=== PATIENT | male | born 1955 | race Caucasian/White ===

== ENCOUNTER 2017-09-16 06:37 | Inpatient (IN) | payer MEDICARE ==
[~2017-09-16] VITALS: Ht 182.9 cm; Wt 95.5 kg
[2017-09-16] MEDS ORDERED: SODIUM CHLORIDE 0.9% 1,000 ML IV ONE (06:52)
[2017-09-16] MEDS ORDERED: SODIUM CHLORIDE FLUSH 10ML SYR IVF ONE (07:00)
[2017-09-16] MEDS ORDERED: SODIUM CHLORIDE 0.9% 1,000ML IVBOLUS ONE ×2 (07:00→08:30)
[2017-09-16 07:18] LABS: MEAN CORPUSCULAR HEMOGLOBIN 30.4 pg (27.5-34.5); MEAN CORPUSCULAR HGB CONC 33.4 g/dL (33.2-36.2); MEAN CORPUSCULAR VOLUME 91.2 fL (81-97); MEAN PLATELET VOLUME 10.6 fL (7.4-10.4); PLATELET COUNT 193 x10^3/uL (130-400); RED BLOOD COUNT 4.51 x10^6/uL (4.38-5.82); RED CELL DISTRIBUTION WIDTH 16.2 % (9.4-14.8)
[2017-09-16 07:27] LABS: INTERNATIONAL NORMALIZED RATIO 1.25 (0.93-1.1); PROTHROMBIN TIME 12.9 Seconds (9.6-11.5)
[2017-09-16 07:30] LABS: ALANINE AMINOTRANSFERASE 48 U/L (12-78); ALBUMIN 1.7 g/dL (3.4-5.0); ANION GAP 11 mmol/L (5-15); CALCIUM 8.6 mg/dL (8.5-10.1); CHLORIDE 90 mmol/L (98-107)
[2017-09-16 07:34] LABS: ALKALINE PHOSPHATASE 579 U/L (45-117); BILIRUBIN,TOTAL 1.6 mg/dL (0.2-1.0); CREATINE KINASE, TOTAL 14 U/L (39-308); TOTAL PROTEIN 8.2 g/dL (6.4-8.2); TROPONIN I < 0.015 ng/mL (0.000-0.045)
[2017-09-16] MEDS ORDERED: GLIM4TAB2 PO (07:44)
[2017-09-16] MEDS ORDERED: CARV25TA12 PO (07:44)
[2017-09-16] MEDS ORDERED: MULTIVITAMIN PO (07:44)
[2017-09-16] MEDS ORDERED: ALLO300T PO (07:44)
[2017-09-16] MEDS ORDERED: LACT10SO5 PO (07:44)
[2017-09-16] MEDS ORDERED: SPIR25TA3 PO (07:44)
[2017-09-16] MEDS ORDERED: FURO20TA3 PO (07:44)
[2017-09-16 07:57] LABS: BASOPHILS # (AUTO) 0.07 x10^3/uL (0-0.1); BASOPHILS % (AUTO) 1 % (0-1); EOSINOPHILS % (AUTO) 0 % (1-7); LYMPHOCYTES # (AUTO) 0.81 x10^3/uL (1-3.4); LYMPHOCYTES % (AUTO) 6 % (22-44); MD SCAN; MONOCYTES # (AUTO) 0.13 x10^3/uL (0.2-0.8); MONOCYTES % (AUTO) 1 % (2-9); NEUTROPHILS % (AUTO) 93 % (42-75)
[2017-09-16] MEDS ORDERED: PLEASE ENTER HEIGHT AND WEIGHT MC SCH (08:30)
[2017-09-16] MEDS ORDERED: OMNIPAQUE 350 MG/ML, 100ML BOTTLE ONE (08:34)
[2017-09-16] MEDS ORDERED: POLYETHYLENE GLYCOL 17 GM PACKET PO PRN (10:00)
[2017-09-16] MEDS ORDERED: ONDANSETRON 2MG/ML, 2ML IVPush PRN (10:00)
[2017-09-16] MEDS ORDERED: DOCUSATE 100 MG CAPSULE PO PRN (10:00)
[2017-09-16] MEDS ORDERED: ALBUMIN HUMAN 25% 100 ML IV ONE (10:00)
[2017-09-16] MEDS ORDERED: LIDOCAINE 2%, 10ML ONE ×2 (10:00→10:26)
[2017-09-16] MEDS ORDERED: ACETAMINOPHEN 325 MG TABLET PO PRN (10:00)
[2017-09-16] MEDS ORDERED: BISACODYL 10 MG SUPP PR PRN (10:00)
[2017-09-16] MEDS ORDERED: LACTATED RINGERS 1,000 ML IVBOLUS ONE (10:30)
[2017-09-16] MEDS: LACTATED RINGERS 1,000 ML IV SCH ×2 (10:42→12:58)
[2017-09-16] MEDS: NOREPINEPHRINE 4 MG in SODIUM CHLORIDE 0.9% 246 ML IV PRN ×3 (10:59→20:30)
[2017-09-16] MEDS ORDERED: NALOXONE 1 MG/ML, 2ML ONE (11:25)
[2017-09-16] MEDS ORDERED: MIDAZOLAM 1 MG/ML, 5ML ONE (11:25)
[2017-09-16] MEDS ORDERED: FLUMAZENIL 0.1 MG/1 ML, 5ML ONE (11:25)
[2017-09-16] MEDS ORDERED: FENTANYL PF 100 MCG/2ML ONE (11:25)
[2017-09-16] MEDS ORDERED: HEPARIN wt. based STROKE protocol MC PRN (13:00)
[2017-09-16] MEDS ORDERED: DAPTOMYCIN 500 MG in SODIUM CHLORIDE 0.9% 100 ML IVPB ONE (13:30)
[2017-09-16] MEDS: ERTAPENEM 1 GM in SODIUM CHLORIDE 0.9% 50 ML IV SCH (13:51)
[2017-09-16] MEDS ORDERED: ALBUTEROL SULFATE 2.5 MG/3 ML NPPB PRN (14:00)
[2017-09-16] MEDS ORDERED: VASOPRESSIN 100 UNIT in SODIUM CHLORIDE 0.9% 495 ML IV PRN (14:30)
[2017-09-16] MEDS ORDERED: PHENYLEPHRINE 20 MG in SODIUM CHLORIDE 0.9% 248 ML IV PRN (14:30)
[2017-09-16] MEDS: HEPARIN 25,000 UNITS/500ML PMX 500 ML IV PRN (14:30)
[2017-09-16] MEDS ORDERED: NOREPINEPHRINE 1 MG/ML, 4ML ONE (16:08)
[2017-09-16] MEDS: FAMOTIDINE 20 MG/2 ML IVPush SCH (21:11)
[2017-09-16] MEDS: OXYcodone/APAP 5/325MG TABLET PO PRN (22:01)
[2017-09-17] MEDS: LACTATED RINGERS 1,000 ML IV SCH ×3 (00:07→23:10)
[2017-09-17] MEDS: NOREPINEPHRINE 8 MG in SODIUM CHLORIDE 0.9% 242 ML IV PRN ×3 (00:25→18:14)
[2017-09-17 04:00] VITALS: BP 90/56
[2017-09-17 04:24] LABS: MEAN CORPUSCULAR HGB CONC 32.9 g/dL (33.2-36.2); MEAN CORPUSCULAR VOLUME 91.1 fL (81-97); MEAN PLATELET VOLUME 9.4 fL (7.4-10.4); PLATELET COUNT 254 x10^3/uL (130-400); RED BLOOD COUNT 3.68 x10^6/uL (4.38-5.82); RED CELL DISTRIBUTION WIDTH 15.9 % (9.4-14.8)
[2017-09-17 04:34] LABS: ALANINE AMINOTRANSFERASE 37 U/L (12-78); ALBUMIN 1.6 g/dL (3.4-5.0); ANION GAP 9 mmol/L (5-15); CALCIUM 7.8 mg/dL (8.5-10.1); CHLORIDE 100 mmol/L (98-107)
[2017-09-17 04:37] LABS: ALKALINE PHOSPHATASE 373 U/L (45-117); BILIRUBIN,TOTAL 1.2 mg/dL (0.2-1.0); CREATININE 0.44 mg/dL (0.7-1.3); TOTAL PROTEIN 6.2 g/dL (6.4-8.2)
[2017-09-17 04:38] LABS: MD YES
[2017-09-17 04:41] LABS: ANISOCYTOSIS 1+; BAND#(MANUAL) 0.35 x10^3/uL; BANDS%(MANUAL) 2 % (0-7); LYMPH#(MANUAL) 2.63 x10^3/uL (1-3.4); LYMPHS% (MANUAL) 15 % (22-44); MONOS#(MANUAL) 0.35 x10^3/uL (0.3-2.7); MONOS% (MANUAL) 2 % (2-9); SEG#(MANUAL) 14.18 x10^3/uL (1.8-6.8); SEGS% (MANUAL) 81 % (42-75)
[2017-09-17 04:42] LABS: <PLATELET ESTIMATE> ADEQUATE; LARGE PLATELETS 1+
[2017-09-17] MEDS ORDERED: ALBUMIN HUMAN 25% 100 ML IV ONE (08:30)
[2017-09-17] MEDS ORDERED: MAGNESIUM SULFATE PMX 4GM/100M 100 ML IV ONE (08:30)
[2017-09-17] MEDS: FAMOTIDINE 20 MG/2 ML IVPush SCH ×2 (08:35→20:51)
[2017-09-17] MEDS: ERTAPENEM 1 GM in SODIUM CHLORIDE 0.9% 50 ML IV SCH (13:17)
[2017-09-17] MEDS: HEPARIN 25,000 UNITS/500ML PMX 500 ML IV PRN (14:36)
[2017-09-17] MEDS: OXYcodone/APAP 5/325MG TABLET PO PRN (20:52)
[2017-09-17] MEDS ORDERED: [UNRECOGNIZED DRUG - REMARK] MC PRN (22:30)
[2017-09-18 03:39] LABS: ALANINE AMINOTRANSFERASE 30 U/L (12-78); ANION GAP 6 mmol/L (5-15); CALCIUM 7.9 mg/dL (8.5-10.1); CHLORIDE 98 mmol/L (98-107); CREATININE 0.36 mg/dL (0.7-1.3)
[2017-09-18 03:41] LABS: ALKALINE PHOSPHATASE 319 U/L (45-117); BILIRUBIN,TOTAL 0.8 mg/dL (0.2-1.0); TOTAL PROTEIN 6.2 g/dL (6.4-8.2)
[2017-09-18 03:43] LABS: BASOPHILS # (AUTO) 0.04 x10^3/uL (0-0.1); BASOPHILS % (AUTO) 0 % (0-1); EOSINOPHILS # (AUTO) 0.01 x10^3/uL (0-0.4); EOSINOPHILS % (AUTO) 0 % (1-7); LYMPHOCYTES # (AUTO) 2.04 x10^3/uL (1-3.4); LYMPHOCYTES % (AUTO) 21 % (22-44); MD NO; MEAN CORPUSCULAR HEMOGLOBIN 30.4 pg (27.5-34.5); MEAN CORPUSCULAR HGB CONC 33.1 g/dL (33.2-36.2); MEAN CORPUSCULAR VOLUME 92.1 fL (81-97); MEAN PLATELET VOLUME 9.1 fL (7.4-10.4); MONOCYTES # (AUTO) 0.83 x10^3/uL (0.2-0.8); MONOCYTES % (AUTO) 8 % (2-9); NEUTROPHILS # (AUTO) 7.05 x10^3/uL (1.8-6.8); NEUTROPHILS % (AUTO) 71 % (42-75); PLATELET COUNT 147 x10^3/uL (130-400); RED BLOOD COUNT 3.23 x10^6/uL (4.38-5.82); RED CELL DISTRIBUTION WIDTH 16.1 % (9.4-14.8)
[2017-09-18] MEDS: OXYcodone/APAP 5/325MG TABLET PO PRN (04:27)
[2017-09-18 04:32] VITALS: BP 113/68
[2017-09-18] MEDS ORDERED: POTASSIUM PHOSPHATE 44 MEQ in SODIUM CHLORIDE 0.9% 500 ML IV ONE (09:00)
[2017-09-18] MEDS: FAMOTIDINE 20 MG/2 ML IVPush SCH (09:02)
[2017-09-18] MEDS: LACTATED RINGERS 1,000 ML IV SCH (09:24)
[2017-09-18] MEDS: HEPARIN 25,000 UNITS/500ML PMX 500 ML IV PRN (09:43)
[2017-09-18] MEDS ORDERED: OMNIPAQUE 350 MG/ML, 100ML BOTTLE ONE (12:40)
[2017-09-18] MEDS: ERTAPENEM 1 GM in SODIUM CHLORIDE 0.9% 50 ML IV SCH (13:12)
[2017-09-18] MEDS: FAMOTIDINE 20 MG TABLET PO SCH (20:39)
[2017-09-18] MEDS ORDERED: LACTATED RINGERS 1,000 ML IV SCH (23:00)
[2017-09-19] MEDS: HEPARIN 25,000 UNITS/500ML PMX 500 ML IV PRN ×2 (01:18→19:53)
[2017-09-19 03:47] VITALS: BP 127/79
[2017-09-19 06:24] LABS: CHLORIDE 101 mmol/L (98-107)
[2017-09-19 06:30] LABS: BASOPHILS # (AUTO) 0.01 x10^3/uL (0-0.1); BASOPHILS % (AUTO) 0 % (0-1); EOSINOPHILS # (AUTO) 0.02 x10^3/uL (0-0.4); EOSINOPHILS % (AUTO) 0 % (1-7); LYMPHOCYTES # (AUTO) 1.69 x10^3/uL (1-3.4); LYMPHOCYTES % (AUTO) 23 % (22-44); MD NO; MEAN CORPUSCULAR HEMOGLOBIN 30.8 pg (27.5-34.5); MEAN CORPUSCULAR HGB CONC 33.5 g/dL (33.2-36.2); MEAN CORPUSCULAR VOLUME 91.9 fL (81-97); MEAN PLATELET VOLUME 9.1 fL (7.4-10.4); MONOCYTES # (AUTO) 0.63 x10^3/uL (0.2-0.8); MONOCYTES % (AUTO) 9 % (2-9); NEUTROPHILS # (AUTO) 5.14 x10^3/uL (1.8-6.8); NEUTROPHILS % (AUTO) 69 % (42-75); PLATELET COUNT 140 x10^3/uL (130-400); RED BLOOD COUNT 3.13 x10^6/uL (4.38-5.82); RED CELL DISTRIBUTION WIDTH 15.9 % (9.4-14.8)
[2017-09-19 06:38] LABS: ALANINE AMINOTRANSFERASE 28 U/L (12-78); ALBUMIN 1.7 g/dL (3.4-5.0); ALKALINE PHOSPHATASE 295 U/L (45-117); ANION GAP 7 mmol/L (5-15); BILIRUBIN,TOTAL 0.6 mg/dL (0.2-1.0); CREATININE 0.22 mg/dL (0.7-1.3)
[2017-09-19] MEDS ORDERED: ALBUTEROL SULFATE 2.5 MG/3 ML ONE (08:53)
[2017-09-19] MEDS ORDERED: POTASSIUM PHOSPHATE 44 MEQ in SODIUM CHLORIDE 0.9% 500 ML IV ONE (09:00)
[2017-09-19] MEDS: FAMOTIDINE 20 MG TABLET PO SCH ×2 (09:14→19:51)
[2017-09-19] MEDS: FUROSEMIDE 20 MG TABLET PO SCH (09:15)
[2017-09-19] MEDS: SPIRONOLACTONE 25 MG TABLET PO SCH (09:15)
[2017-09-19] MEDS: ALBUTEROL SULFATE 2.5 MG/3 ML NPPB SCH ×3 (11:30→20:00)
[2017-09-19] MEDS: LACTULOSE 20 GM/30 ML UDC PO SCH ×3 (12:05→19:59)
[2017-09-19] MEDS: ERTAPENEM 1 GM in SODIUM CHLORIDE 0.9% 50 ML IV SCH (13:01)
[2017-09-19 16:33] LABS: ANION GAP 6 mmol/L (5-15); CALCIUM 7.7 mg/dL (8.5-10.1); CHLORIDE 99 mmol/L (98-107); CREATININE 0.37 mg/dL (0.7-1.3)
[2017-09-20 05:05] VITALS: BP 101/65
[2017-09-20] MEDS: LACTULOSE 20 GM/30 ML UDC PO SCH ×4 (05:16→21:14)
[2017-09-20 06:19] LABS: BASOPHILS # (AUTO) 0.06 x10^3/uL (0-0.1); BASOPHILS % (AUTO) 1 % (0-1); EOSINOPHILS # (AUTO) 0.03 x10^3/uL (0-0.4); EOSINOPHILS % (AUTO) 1 % (1-7); LYMPHOCYTES # (AUTO) 1.55 x10^3/uL (1-3.4); LYMPHOCYTES % (AUTO) 27 % (22-44); MD NO; MEAN CORPUSCULAR HEMOGLOBIN 29.6 pg (27.5-34.5); MEAN CORPUSCULAR HGB CONC 32.4 g/dL (33.2-36.2); MEAN CORPUSCULAR VOLUME 91.4 fL (81-97); MEAN PLATELET VOLUME 9.1 fL (7.4-10.4); MONOCYTES # (AUTO) 0.43 x10^3/uL (0.2-0.8); MONOCYTES % (AUTO) 8 % (2-9); NEUTROPHILS # (AUTO) 3.62 x10^3/uL (1.8-6.8); NEUTROPHILS % (AUTO) 64 % (42-75); PLATELET COUNT 139 x10^3/uL (130-400); RED CELL DISTRIBUTION WIDTH 16.1 % (9.4-14.8)
[2017-09-20 06:27] LABS: ALANINE AMINOTRANSFERASE 27 U/L (12-78); ALBUMIN 1.6 g/dL (3.4-5.0); ANION GAP 6 mmol/L (5-15); CALCIUM 7.7 mg/dL (8.5-10.1); CHLORIDE 98 mmol/L (98-107)
[2017-09-20 06:38] LABS: ALKALINE PHOSPHATASE 305 U/L (45-117); BILIRUBIN,TOTAL 0.7 mg/dL (0.2-1.0); TOTAL PROTEIN 5.6 g/dL (6.4-8.2)
[2017-09-20] MEDS: ALBUTEROL SULFATE 2.5 MG/3 ML NPPB SCH ×4 (07:25→20:00)
[2017-09-20] MEDS ORDERED: MAGNESIUM SULFATE PMX 4GM/100M 100 ML IV ONE (07:30)
[2017-09-20] MEDS ORDERED: POTASSIUM CHLORIDE 20 MEQ TAB.ER.PRT PO ONE (07:30)
[2017-09-20] MEDS: FAMOTIDINE 20 MG TABLET PO SCH ×2 (08:08→21:14)
[2017-09-20] MEDS: SPIRONOLACTONE 25 MG TABLET PO SCH (08:08)
[2017-09-20] MEDS: FUROSEMIDE 20 MG TABLET PO SCH (08:08)
[2017-09-20] MEDS ORDERED: POTASSIUM CHLORIDE 10% 40 MEQ/30 ML UDC PO ONE (12:00)
[2017-09-20] MEDS: LINEZOLID 600 MG TABLET PO SCH ×2 (12:01→21:14)
[2017-09-20] MEDS: ERTAPENEM 1 GM in SODIUM CHLORIDE 0.9% 50 ML IV SCH (12:52)
[2017-09-20] MEDS: HEPARIN 25,000 UNITS/500ML PMX 500 ML IV PRN (14:51)
[2017-09-20 17:00] VITALS: BP 108/72
[2017-09-20 20:41] VITALS: BP 107/68
[2017-09-21 00:52] VITALS: BP 108/71
[2017-09-21] MEDS ORDERED: [UNRECOGNIZED DRUG - REMARK] MC ONE (01:30)
[2017-09-21] MEDS: LACTULOSE 20 GM/30 ML UDC PO SCH ×3 (05:41→16:00)
[2017-09-21 06:08] LABS: BASOPHILS # (AUTO) 0.06 x10^3/uL (0-0.1); BASOPHILS % (AUTO) 1 % (0-1); EOSINOPHILS # (AUTO) 0.11 x10^3/uL (0-0.4); EOSINOPHILS % (AUTO) 2 % (1-7); LYMPHOCYTES # (AUTO) 1.77 x10^3/uL (1-3.4); LYMPHOCYTES % (AUTO) 25 % (22-44); MD NO; MEAN CORPUSCULAR HGB CONC 33.1 g/dL (33.2-36.2); MEAN CORPUSCULAR VOLUME 90.4 fL (81-97); MEAN PLATELET VOLUME 8.9 fL (7.4-10.4); MONOCYTES # (AUTO) 0.59 x10^3/uL (0.2-0.8); MONOCYTES % (AUTO) 8 % (2-9); NEUTROPHILS # (AUTO) 4.58 x10^3/uL (1.8-6.8); NEUTROPHILS % (AUTO) 65 % (42-75); PLATELET COUNT 143 x10^3/uL (130-400); RED BLOOD COUNT 3.35 x10^6/uL (4.38-5.82)
[2017-09-21 06:17] LABS: ALANINE AMINOTRANSFERASE 30 U/L (12-78); ALBUMIN 1.6 g/dL (3.4-5.0); ANION GAP 6 mmol/L (5-15); CALCIUM 7.3 mg/dL (8.5-10.1); CHLORIDE 95 mmol/L (98-107)
[2017-09-21 06:19] LABS: ALKALINE PHOSPHATASE 336 U/L (45-117); BILIRUBIN,TOTAL 0.6 mg/dL (0.2-1.0); TOTAL PROTEIN 5.7 g/dL (6.4-8.2)
[2017-09-21] MEDS ORDERED: MAGNESIUM SULFATE PMX 2GM/50ML 50 ML IV ONE (06:30)
[2017-09-21] MEDS: HEPARIN 25,000 UNITS/500ML PMX 500 ML IV PRN (06:52)
[2017-09-21 07:10] VITALS: BP 120/81
[2017-09-21] MEDS: ALBUTEROL SULFATE 2.5 MG/3 ML NPPB SCH ×2 (07:10→11:25)
[2017-09-21] MEDS ORDERED: LIDOCAINE-MPF 1%, 5ML ONE (07:43)
[2017-09-21] MEDS: SPIRONOLACTONE 25 MG TABLET PO SCH (09:47)
[2017-09-21] MEDS: FAMOTIDINE 20 MG TABLET PO SCH (09:48)
[2017-09-21] MEDS: FUROSEMIDE 20 MG TABLET PO SCH (09:48)
[2017-09-21] MEDS: LINEZOLID 600 MG TABLET PO SCH (09:48)
[2017-09-21 13:05] VITALS: BP 121/79
[2017-09-21] MEDS: ERTAPENEM 1 GM in SODIUM CHLORIDE 0.9% 50 ML IV SCH (13:18)
[2017-09-21] MEDS ORDERED: LACT20SO13 PO (14:26)
[2017-09-21] MEDS ORDERED: Ertapenem IVPB (14:26)
[2017-09-21] MEDS ORDERED: ALBU2.5V NPPB (14:26)
[2017-09-21] MEDS ORDERED: heparin IV (14:26)
[2017-09-21] MEDS ORDERED: FAMO20TA7 PO (14:26)
[2017-09-21] MEDS ORDERED: Pharmacy Instruction MC (14:26)
[2017-09-21] MEDS ORDERED: LINE600T7 PO (14:26)
[2017-09-21] MEDS ORDERED: DOCU-131 PO (14:26)
[2017-09-21] MEDS ORDERED: THIA100T6 PO (15:06)
[2017-09-21] MEDS ORDERED: FOLI-17 PO (15:06)
== END 2017-09-21 17:22 | DRG 871 ==
LOC: ED 06:52 → EDIP 09:09 → CCU 12:13 → 5SO 09-20 15:04
PROVIDERS: ADMIT Hospitalist; ATTEND Hospitalist
PROC: 0F903ZZ Drainage of Liver, Percutaneous Approach (ICD-10-PCS; 2017-09-16)
PROC: 02H633Z Insertion of Infusion Device into Right Atrium, Percutaneous Approach (ICD-10-PCS; 2017-09-16)
PROC: B244ZZZ Ultrasonography of Right Heart (ICD-10-PCS; 2017-09-16)
PROC: 02HV33Z Insertion of Infusion Device into Superior Vena Cava, Percutaneous Approach (ICD-10-PCS; principal; 2017-09-21)
PROC: B5181ZA Fluoroscopy of Superior Vena Cava using Low Osmolar Contrast, Guidance (ICD-10-PCS; 2017-09-21)
DX: A41.9 Sepsis, unspecified organism (principal); R65.21 Severe sepsis with septic shock; I26.99 Other pulmonary embolism without acute cor pulmonale; E43 Unspecified severe protein-calorie malnutrition; J96.00 Acute respiratory failure, unspecified whether with hypoxia or hypercapnia; I11.0 Hypertensive heart disease with heart failure; K75.0 Abscess of liver; I50.9 Heart failure, unspecified; R53.2 Functional quadriplegia; E87.1 Hypo-osmolality and hyponatremia; D63.8 Anemia in other chronic diseases classified elsewhere; E11.65 Type 2 diabetes mellitus with hyperglycemia; E86.0 Dehydration; I07.1 Rheumatic tricuspid insufficiency; I35.8 Other nonrheumatic aortic valve disorders; K72.90 Hepatic failure, unspecified without coma; K74.60 Unspecified cirrhosis of liver; M10.9 Gout, unspecified; Z79.84 Long term (current) use of oral hypoglycemic drugs; Z82.49 Family history of ischemic heart disease and other diseases of the circulatory system; Z87.891 Personal history of nicotine dependence; Z83.3 Family history of diabetes mellitus; Z88.0 Allergy status to penicillin; Z90.49 Acquired absence of other specified parts of digestive tract; Z68.28 Body mass index [BMI] 28.0-28.9, adult
CPT/HCPCS: 36415; 36556; 36569; 36600; 49405; 71045; 71275; 74177; 75989; 76937; 77001; 80048; 80053; 82140; 82533; 82550; 82553; 82803; 83605; 83735; 83880; 84100; 84443; 84484; 85025; 85520; 85610; 85730; 87040; 87070; 87075; 87077; 87081; 87181; 87186; 87205; 93005; 93306; 93970; 94640; 96361; 96374; 96375; 99156; 99157; 99291; C1894; J0878; J1335; J1644; J2250; J3010; J3490; J7613; P9047; Q9967; C1729; C1751; C1769; J2310; J3475; J7030; J7040; J7050; J7120; S0028